=== PATIENT | female | born 1940 | race Caucasian/White ===

== ENCOUNTER 2025-05-14 09:20 | Outpatient (CLI) | payer MEDICARE, SELFPAY ==
--- NOTE | 2025-05-14 10:49 | P.ANES_ITS ---
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
--- NOTE | 2025-05-14 10:49 | W.ANESCHARGE ---
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
== END 2025-05-14 09:21 | disposition home or self-care (01) ==
PROVIDERS: Visit Provider Internal Medicine Gastroenterology
DX: Z12.11 Encounter for screening for malignant neoplasm of colon (principal); R19.5 Other fecal abnormalities; D12.2 Benign neoplasm of ascending colon; D12.3 Benign neoplasm of transverse colon
CPT/HCPCS: 00811; 45385; 88305; 99100; J2704